=== PATIENT | male | born 1965 | race Caucasian/White ===

== ENCOUNTER 2020-08-31 11:11 | Inpatient (IN) | payer SELFPAY ==
[~2020-08-31] VITALS: Ht 182.9 cm; Wt 91.9 kg
--- NOTE | 2020-08-31 11:22 | PHYS DOC ---
Past History Past Medical History: Pancreatitis Past Surgical History: No Surgical History Adult General Chief Complaint Chief Complaint: FLU SYMPTOM HPI HPI Patient is a 55-year-old male presenting via EMS for nausea, vomit and diarrhea. Patient has history of pancreatitis in the past from unknown etiology and is otherwise healthy with no known medical issues or daily medication use. Reports he tested positive for Covid 3 days ago at local urgent care. Since then, he has been trying to provide supportive care to himself at home as he lives home alone but has had ongoing nausea, vomit and diarrhea without any other concer lety symptoms. Denies fever, chills, diaphoresis, syncope, chest pain, shortness of breath or other URI-like symptoms. Patient has not been able to tolerate any p.o. intake and ongoing symptoms concerned him prompting him to call EMS for transport to our facility Review of Systems Review of Systems Fourteen body systems of review of systems have been reviewed. See HPI for pertinent positives and negative responses, other taylor all other systems are negative, non-pertinent or non-contributory Allergies Allergies Allergies Coded Allergies Type Severity Reaction Last Updated Verified morphine Allergy Intermediate 08/31/20 Yes Physical Exam Physical Exam Constitutional: Well developed, well nourished, moderate distress heaving on hospital [facility], forcibly making grunting/moaning sounds HENT: Normocephalic, atraumatic, bilateral external ears normal, oropharynx moist, no oral exudates, nose normal. Eyes: PERRLA, EOMI, conjunctiva normal, no discharge. Neck: Normal range of motion, no tenderness, supple, no stridor. Cardiovascular: Heart rate regular, sinus rhythm, no murmurs rubs or gallops Lungs & Thorax: Bilateral breath sounds clear to auscultation Abdomen: Bowel sounds normal, soft, generalized abdominal tenderness, voluntary guarding present without rebound, no masses, no pulsatile masses. Nonsurgical abdomen, no peritoneal signs Skin: Warm, dry, no erythema, no rash. Back: No tenderness, no CVA tenderness. Extremities: No tenderness, no cyanosis, no clubbing, ROM intact, no edema. Neurologic: Alert and oriented X 3, grossly normal motor & sensory function, no focal deficits noted. Psychologic: Unable to fully assess, patient is hysterical, forcibly making heaving and moaning sounds throughout entirety of ER visit Current Patient Data Vital Signs Vital Signs Date Time Temp Pulse Resp B/P (MAP) Pulse Ox O2 Delivery O2 Flow Rate FiO2 09/01/20 08:47 18 99 Room Air 09/01/20 08:30 Room Air 09/01/20 08:05 20 Room Air 08/31/20 23:00 98.5 67 22 125/73 (90) 99 Room Air 08/31/20 20:00 Room Air 08/31/20 19:53 98.2 67 22 149/66 (93) 99 Room Air 08/31/20 16:15 Room Air 08/31/20 16:15 97.2 67 22 121/76 (91) 99 Room Air 08/31/20 13:20 Room Air 08/31/20 11:12 97.4 93 28 147/86 (106) 100 Room Air Lab Results Laboratory Tests Test 08/31/20 11:50 09/01/20 06:10 White Blood Count 11.1 x10^3/uL 10.3 x10^3/uL Red Blood Count 5.19 x10^6/uL 4.17 x10^6/uL Hemoglobin 14.9 g/dL 12.1 g/dL Hematocrit 46.1 % 36.5 % Mean Corpuscular Volume 89 fL 88 fL Mean Corpuscular Hemoglobin 29 pg 29 pg Mean Corpuscular Hemoglobin Concent 32 g/dL 33 g/dL Red Cell Distribution Width 14.5 % 14.3 % Platelet Count 300 x10^3/uL 222 x10^3/uL Neutrophils (%) (Auto) 82 % 84 % Lymphocytes (%) (Auto) 10 % 7 % Monocytes (%) (Auto) 7 % 8 % Eosinophils (%) (Auto) 1 % 0 % Basophils (%) (Auto) 1 % 0 % Neutrophils # (Auto) 9.1 x10^3uL 8.6 x10^3uL Lymphocytes # (Auto) 1.1 x10^3/uL 0.8 x10^3/uL Monocytes # (Auto) 0.8 x10^3/uL 0.8 x10^3/uL Eosinophils # (Auto) 0.1 x10^3/uL 0.0 x10^3/uL Basophils # (Auto) 0.1 x10^3/uL 0.0 x10^3/uL Sodium Level 142 mmol/L 142 mmol/L Potassium Level 4.1 mmol/L 3.7 mmol/L Chloride Level 105 mmol/L 106 mmol/L Carbon Dioxide Level 22 mmol/L 25 mmol/L Anion Gap 15 11 Blood Urea Nitrogen 18 mg/dL 21 mg/dL Creatinine 1.4 mg/dL 1.2 mg/dL Estimated GFR (Cockcroft-Gault) 53.0 63.3 BUN/Creatinine Ratio 13 18 Glucose Level 149 mg/dL 132 mg/dL Calcium Level 9.5 mg/dL 8.6 mg/dL Total Bilirubin 0.4 mg/dL 0.3 mg/dL Aspartate Amino Transf (AST/SGOT) 15 U/L 13 U/L Alanine Aminotransferase (ALT/SGPT) 29 U/L 24 U/L Alkaline Phosphatase 59 U/L 47 U/L Creatine Kinase 89 U/L Troponin I Quantitative < 0.017 ng/mL Total Protein 8.3 g/dL 6.7 g/dL Albumin 4.1 g/dL 3.4 g/dL Albumin/Globulin Ratio 1.0 1.0 Lipase 932 U/L Current Medications Medications (Trade) Dose Ordered Sig/Mariluz Route PRN Reason Start Time Stop Time Status Last Admin Dose Admin Sodium Chloride 1,000 ml @ 1,000 mls/hr Q1H IV 08/31/20 11:30 08/31/20 12:29 DC 08/31/20 12:26 Ondansetron HCl (Zofran) 4 mg 1X ONCE IVP 08/31/20 11:30 08/31/20 11:31 DC 08/31/20 11:54 Acetaminophen (Tylenol) 650 mg 1X ONCE PO 08/31/20 11:30 08/31/20 11:31 DC 08/31/20 11:30 Ondansetron HCl (Zofran Odt) 4 mg STK-MED ONCE .ROUTE 08/31/20 11:35 08/31/20 11:36 DC Ondansetron HCl (Zofran Odt) 4 mg 1X ONCE PO 08/31/20 11:45 08/31/20 11:51 DC 08/31/20 11:45 Fentanyl Citrate (Fentanyl 2ml Vial) 50 mcg 1X ONCE IVP 08/31/20 13:15 08/31/20 13:16 DC 08/31/20 13:20 Iohexol (Omnipaque 300 Mg/ml) 75 ml 1X ONCE IV 08/31/20 13:15 08/31/20 13:16 DC 08/31/20 14:11 Ondansetron HCl (Zofran) 4 mg 1X ONCE IVP 08/31/20 13:30 08/31/20 13:31 DC 09/01/20 00:26 Sodium Chloride 1,000 ml @ 1,000 mls/hr 1X ONCE IV 08/31/20 14:00 08/31/20 14:59 DC 08/31/20 14:13 Metoclopramide HCl (Reglan Vial) 10 mg 1X ONCE IVP 08/31/20 14:00 08/31/20 14:01 DC 08/31/20 14:14 EKG EKG EKG ordered and interpreted by myself at 1339 hrs. as sinus rhythm at 66 bpm unremarkable intervals, no axis deviation, no acute ischemic findings, missing lead in V2 otherwise is grossly nonconcerning EKG with no STEMI. Radiology/Procedures Radiology/Procedures PROCEDURE: PORTABLE CHEST 1V XR CHEST 1V History: Reason: NAUSEA AND VOMIT, COVID POSITIVE / Spl. Instructions: / History: Comparison: None. Findings: No consolidation or pleural effusion. Normal heart size. No pneumothorax. Postoperative changes lower cervical spine. Impression: 1. No acute cardiopulmonary process. Electronically signed by: Jose Rogers DO (08/31/2020 12:43 PM) [id number] /////////////////////////////////////// PROCEDURE: CT ABD PELV W/ IV CONTRST ONLY INDICATION: Reason: epigastric pain / Spl. Instructions: / History: . COMPARISON: None. TECHNIQUE: Axial CT images obtained through the abdomen and pelvis with contrast. One or more of the following individualized dose reduction techniques were utilized for this examination: 1. Automated exposure control; 2. Adjustment of the mA and/or kV according to patient size; 3. Use of iterative reconstruction technique. FINDINGS: Moderate calcific atherosclerosis. Small fat-containing left inguinal hernia. No intrahepatic bile duct dilation. No peripancreatic fluid collection. Spleen is unremarkable. No hydronephrosis. Urinary bladder is partially distended with wall thickening. No periappendiceal inflammatory changes. The colon is decompressed with prominent appearance of wall. Degenerative changes of the hips and spine with multilevel central canal and neural foraminal stenosis. This includes multiple disc protrusions. IMPRESSION: * Urinary bladder is partially distended with prominence of the wall. This could be caused by chronic etiology such as chronic partial bladder outlet obstruction with some other possible causes including cystitis or bladder wall lesion. * Colon is decompressed with some prominence of the wall throughout. Could be secondary to contraction but limited evaluation given this decompression. * No hydronephrosis or evidence of appendicitis. Electronically signed by: Mario Alberto Hassan MD (08/31/2020 2:40 PM) [id number] Heart Score C/O Chest Pain: No Risk Factors: Risk Factors: DM, Current or recent (<one month) smoker, HTN, HLP, family history of CAD, obesity. Risk Scores: Risk Factors: DM, Current or recent (<one month) smoker, HTN, HLP, family history of CAD, obesity. Course & Med Decision Making Course & Med Decision Making Hemodynamically stable patient with history and physical exam consistent with known COVID-19 infection IV access obtained, IV fluid resuscitation and antiemetics administered Comprehensive ER work-up performed and grossly nonconcerning Patient reevaluated numerous times throughout ER visit by various healthcare providers with continued moaning, groaning and feelings of unease. He is not safe for discharge home given that ER management did not adequately improve and/or resolve symptoms I contacted hospitalist and discussed case at length, Dr. Hercules agreed to accept patient under his care at [facility] I have updated patient on proposed plan of care and he was amenable to plan as stated, all questions and concerns addressed prior to ER transportation to [facility] for admission Dragon Disclaimer Dragon Disclaimer This electronic medical record was generated, in whole or in part, using a voice recognition dictation system. Departure Departure: Impression: Primary Impression: COVID-19 virus infection Additional Impression: Nausea, vomiting, and diarrhea Disposition: ADMITTED INPT THIS HOSP Admitting Physician: Tunde Hercules Condition: STABLE Problem Qualifiers CARIDAD FONG DO Aug 31, 2020 11:22
[2020-08-31] MEDS ORDERED: ACETAMINOPHEN 325 MG TABLET PO ONE (11:30)
[2020-08-31] MEDS ORDERED: ONDANSETRON PF 4 MG/2 ML VIAL. IVP ONE ×2 (11:30→13:30)
[2020-08-31] MEDS ORDERED: IV NORMAL SALINE 1,000ML 1,000 ML IV SCH (11:30)
[2020-08-31] MEDS ORDERED: ONDANSETRON ODT 4 MG TAB.RAPDIS ONE (11:35)
[2020-08-31] MEDS ORDERED: ONDANSETRON ODT 4 MG TAB.RAPDIS PO ONE (11:45)
[2020-08-31 12:15] LABS: BASO # 0.1 x10^3/uL (0.0-0.2); BASO % 1 % (0-3); EOS # 0.1 x10^3/uL (0.0-0.7); EOS % 1 % (0-3); HEMATOCRIT 46.1 % (39.0-53.0); HEMOGLOBIN 14.9 g/dL (13.0-17.5); LYMPH # 1.1 x10^3/uL (1.0-4.8); LYMPH % 10 % (24-48); MEAN CORPUSCULAR HEMOGLOBIN 29 pg (25-35); MEAN CORPUSCULAR HGB CONC 32 g/dL (31-37); MEAN CORPUSCULAR VOLUME 89 fL (79-100); MONO # 0.8 x10^3/uL (0.0-1.1); MONO % 7 % (0-9); NEUT # 9.1 x10^3uL (1.8-7.7); NEUT % 82 % (31-73); PLATELET COUNT 300 x10^3/uL (140-400); RED BLOOD COUNT 5.19 x10^6/uL (4.30-5.70); RED CELL DISTRIBUTION WIDTH 14.5 % (11.5-14.5); WHITE BLOOD COUNT 11.1 x10^3/uL (4.0-11.0)
[2020-08-31 12:25] LABS: CALCIUM 9.5 mg/dL (8.5-10.1); CREATININE 1.4 mg/dL (0.7-1.3); POTASSIUM 4.1 mmol/L (3.5-5.1)
[2020-08-31 12:32] LABS: ALBUMIN 4.1 g/dL (3.4-5.0); TOTAL BILIRUBIN 0.4 mg/dL (0.2-1.0); TOTAL PROTEIN 8.3 g/dL (6.4-8.2)
--- NOTE | 2020-08-31 12:45 | RAD ---
XR CHEST 1V History: Reason: NAUSEA AND VOMIT, COVID POSITIVE / Spl. Instructions: / History: Comparison: None. Findings: No consolidation or pleural effusion. Normal heart size. No pneumothorax. Postoperative changes lower cervical spine. Impression: 1. No acute cardiopulmonary process. Electronically signed by: Jose Rogers DO (08/31/2020 12:43 PM) [id number]
[2020-08-31] MEDS ORDERED: IOHEXOL 300 MG/ML 75 ML VIAL. IV ONE (13:15)
[2020-08-31] MEDS ORDERED: METOCLOPRAMIDE HCL 10 MG/2 ML VIAL. IVP ONE (14:00)
[2020-08-31] MEDS ORDERED: IV NORMAL SALINE 1,000ML 1,000 ML IV ONE (14:00)
--- NOTE | 2020-08-31 14:42 | RAD ---
INDICATION: Reason: epigastric pain / Spl. Instructions: / History: . COMPARISON: None. TECHNIQUE: Axial CT images obtained through the abdomen and pelvis with contrast. One or more of the following individualized dose reduction techniques were utilized for this examinat ion: 1. Automated exposure control; 2. Adjustment of the mA and/or kV according to patient size; 3 . Use of iterative reconstruction technique. FINDINGS: Moderate calcific atherosclerosis. Small fat-containing left inguinal hernia. No intrahepatic bile duct dilation. No peripancreatic fluid collection. Spleen is unremarkable. No hydronephrosis. Urinary bladder is partially distended with wall thickening. No periappendiceal inflammatory changes. The colon is decompressed with prominent appearance of wall. Degenerative changes of the hips and spine with multilevel central canal and neural foraminal stenosi s. This includes multiple disc protrusions. IMPRESSION: * Urinary bladder is partially distended with prominence of the wall. This could be caused by chroni c etiology such as chronic partial bladder outlet obstruction with some other possible causes includi ng cystitis or bladder wall lesion. * Colon is decompressed with some prominence of the wall throughout. Could be secondary to contracti on but limited evaluation given this decompression. * No hydronephrosis or evidence of appendicitis. Electronically signed by: Mario Alberto Hassan MD (08/31/2020 2:40 PM) [id number]
--- NOTE | 2020-08-31 14:59 | EKG ---
[facility] ED [facility] [address] [place] [id number] Test Date: 2020-08-31 Test Time: 13:34:49 Pat Name: BRAIN DORANTES Department: Room: Gender: M [employer] Supervisor: : 1965 Requested By: CARIDAD FONG Order Number: [id number] Reading MD: Measurements Intervals [place] Rate: 75 P: 56 IA: 148 QRS: 19 QRSD: 94 T: 34 QT: 414 QTc: 465 Interpretive Statements SINUS RHYTHM VENTRICULAR PREMATURE COMPLEX(ES) ATRIAL PREMATURE COMPLEX(ES) T ABNORMALITY IN ANTEROSEPTAL LEADS ABNORMAL ECG RI6.02 Compared to ECG 08/31/2020 13:31:26 T-wave abnormality now present
[2020-08-31 16:15] VITALS: BP 121/76
--- NOTE | 2020-08-31 16:48 | NUR ---
NSG NOTE; ADMISSION ADMIT TO ROOM 103 AT 1600 FROM ED VIA CART ACCOMP BY EMS PERSONNEL C/O N/V/D X2 DAYS WITH POSITIVE COVID TEST ON 08/28/20
[2020-08-31] MEDS: IV RINGERS SOLUTION,LACTATED 1,000 ML IV SCH (16:55)
[2020-08-31] MEDS: PROCHLORPERAZINE 10 MG/2 ML VIAL. IVP PRN ×2 (16:56→22:26)
[2020-08-31] MEDS: KETOROLAC 30 MG/ML VIAL. IVP PRN (16:56)
--- NOTE | 2020-08-31 17:22 | NUR ---
NSG NOTE; COMPAZINE & TORADOL GIVEN C/O CONT VOMITING, CHILLS AND BODY ACHES. PT CRYING. DR BERGERON CALLED AND NEW MED ORDERS RECEIVED. COMPAZINE AND TORADOL GIVEN IV. ADDITIONAL BLANKETS APPLIED. WATER AND MOUTHWASH GIVEN FOR AFTER VOMITING. SMALL AMT OF DIARRHEA IN TOILET WITH BRIGHT RED BLOOD NOTED IN TOILET. PT STATES HE HAS A HEMORRHOID THAT OCC BLEEDS. DR BERGERON NOTIFIED AND ORDERS LABS FOR THE AM AND TO CONT TO MONITOR
[2020-08-31] MEDS: ONDANSETRON PF 4 MG/2 ML VIAL. IVP PRN (18:43)
[2020-08-31 19:53] VITALS: BP 149/66
--- NOTE | 2020-08-31 20:00 | NUR ---
Pt crying and c/o 02/22 "nauseous pain." He denies having vomited in the last hour. Will continue to monitor.
[2020-08-31 23:00] VITALS: BP 125/73
[2020-09-01] MEDS: KETOROLAC 30 MG/ML VIAL. IVP PRN (01:33)
[2020-09-01] MEDS: PROCHLORPERAZINE 10 MG/2 ML VIAL. IVP PRN ×3 (04:02→14:12)
[2020-09-01] MEDS: ONDANSETRON PF 4 MG/2 ML VIAL. IVP PRN ×2 (06:25→19:43)
[2020-09-01] MEDS: IV RINGERS SOLUTION,LACTATED 1,000 ML IV SCH (06:25)
[2020-09-01 06:29] LABS: BASO % 0 % (0-3); EOS % 0 % (0-3); HEMATOCRIT 36.5 % (39.0-53.0); HEMOGLOBIN 12.1 g/dL (13.0-17.5); LYMPH # 0.8 x10^3/uL (1.0-4.8); LYMPH % 7 % (24-48); MEAN CORPUSCULAR HEMOGLOBIN 29 pg (25-35); MEAN CORPUSCULAR HGB CONC 33 g/dL (31-37); MEAN CORPUSCULAR VOLUME 88 fL (79-100); MONO # 0.8 x10^3/uL (0.0-1.1); MONO % 8 % (0-9); NEUT # 8.6 x10^3uL (1.8-7.7); NEUT % 84 % (31-73); PLATELET COUNT 222 x10^3/uL (140-400); RED BLOOD COUNT 4.17 x10^6/uL (4.30-5.70); RED CELL DISTRIBUTION WIDTH 14.3 % (11.5-14.5); WHITE BLOOD COUNT 10.3 x10^3/uL (4.0-11.0)
[2020-09-01 06:48] LABS: ALBUMIN 3.4 g/dL (3.4-5.0); CALCIUM 8.6 mg/dL (8.5-10.1); CREATININE 1.2 mg/dL (0.7-1.3); GFR 63.3; POTASSIUM 3.7 mmol/L (3.5-5.1); TOTAL BILIRUBIN 0.3 mg/dL (0.2-1.0); TOTAL PROTEIN 6.7 g/dL (6.4-8.2)
--- NOTE | 2020-09-01 08:31 | HP ---
ADMIT DATE: 08/31/2020 ATTENDING PHYSICIAN: Dr. Bergeron. CHIEF COMPLAINT: Nausea, vomiting and abdominal pain. HISTORY OF PRESENT ILLNESS: Patient is a 55-year-old gentleman, recently moved here from [place], [place]. He has no local physician. He is otherwise healthy. He states he was diagnosed recently with coronavirus infection where he got the swab, remains to be seen. He has had GI symptoms without any pulmonary symptoms. He has had nausea, vomiting, diarrhea and significant abdominal pain, which by far is more than what I can find on physical exam. He was treated accordingly, admitted with symptomatic treatment. I reviewed his CT of the abdomen. There is no evidence of any obstruction, gallbladder disease, pancreatitis or obstruction. He has most likely a self-limiting gastroenteritis. This may be a different virus than the coronavirus, although coronavirus has been shown to cause some GI symptoms. He has no pulmonary symptoms. Chest x-ray was clear. ALLERGIES: HE HAS ALLERGIES TO MORPHINE, exact reaction is unclear. PAST MEDICAL HISTORY: Unremarkable for any diabetes, hypertension. He has had some chronic hemorrhoids. He is not on any prescription meds. FAMILY HISTORY: Parents are both alive in their early 80s. They live in [place], [place]. He is single, without any family. REVIEW OF SYSTEMS: Significant for the hemorrhoids. He has had the GI symptoms. There is no recent travel. All other systems were reviewed and turned to be negative. PHYSICAL EXAMINATION: GENERAL: When I saw him, this is a pleasant gentleman, but appears in much discomfort based on his findings. INITIAL VITAL SIGNS: Showed a blood pressure is 125/73 mmHg, pulse 67 and regular, temperature 98.5 degrees Fahrenheit, oxygen saturation 99% on room air. HEENT: Head is without trauma. Pupils are reactive. Sclerae nonicteric. Oropharynx is clear. NECK: Supple, no bruits identified. LUNGS: Otherwise clear. CARDIOVASCULAR: Showed regular heart tones. No gallops. ABDOMEN: Diffuse tenderness, no guarding or rebound tenderness. Bowel sounds were hypoactive. EXTREMITIES: Show no cyanosis or edema. NEUROLOGIC: Focally intact. Affect is quite flat. SKIN: Warm and dry. PERTINENT LABORATORY STUDIES: His hemoglobin on admission was 14.9 g/dL with white cell count 11,000. Electrolytes, BUN and creatinine within normal range. Creatinine is 1.4 mg/dL. Cardiac enzymes negative. Transaminases were all normal. IMAGING STUDIES: As noted. CT showed no obstruction, pancreatitis or gallbladder disease. No surgical issues at this time. ASSESSMENT: 1. A 55-year-old gentleman with a self-limiting gastroenteritis. Whether this is a GI virus or coronavirus remains to be seen. 2. I believe his condition is self-limiting. 3. Significant psychomotor retardation and probable underlying depression with anxiety. He is not tolerating the symptoms well. 4. Mild dehydration. PLAN: 1. Admit to the inpatient unit. 2. N.p.o. 3. Pain and nausea control. 4. Serial lab work. 5. Advance diet as tolerated. TR BERGERON MD DR: LEONIDES/nts JOB#: [id number] / [id number]
[2020-09-01 10:29] VITALS: BP 114/59
[2020-09-01 14:56] VITALS: BP 106/47
[2020-09-01 20:47] VITALS: BP 104/63
[2020-09-01 23:00] VITALS: BP 120/73
[2020-09-02] MEDS: PROCHLORPERAZINE 10 MG/2 ML VIAL. IVP PRN ×3 (00:43→14:52)
[2020-09-02] MEDS: KETOROLAC 30 MG/ML VIAL. IVP PRN (02:21)
[2020-09-02] MEDS: ONDANSETRON PF 4 MG/2 ML VIAL. IVP PRN ×2 (03:21→11:18)
[2020-09-02 05:54] VITALS: BP 150/77
[2020-09-02] MEDS: IV RINGERS SOLUTION,LACTATED 1,000 ML IV SCH ×2 (08:04→08:05)
--- NOTE | 2020-09-02 10:13 | PN ---
DATE: 09/02/2020 ATTENDING PHYSICIAN: Dr. Tr Bergeron SUBJECTIVE: Still nauseated, very flat affect, lies in bed with the covers over his head. He is tolerating some liquids. He has emesis basin, but I do not see any emesis. OBJECTIVE FINDINGS: VITAL SIGNS: Blood pressure this morning is 150/77, pulse is 56 and regular, temperature 98.2 degrees Fahrenheit, oxygen saturation 97% on room air. HEENT: Head is without trauma. Pupils are reactive. Sclerae nonicteric. Oropharynx clear. NECK: Supple. No stridor. LUNGS: Clear. CARDIOVASCULAR: Showed regular heart tones. No gallops. ABDOMEN: Soft, scaphoid. No guarding or rebound tenderness. Hypoactive bowel sounds. EXTREMITIES: Without edema. NEUROLOGIC: Focally intact. Speech is fluent. Very flat affect. ASSESSMENT: 1. A 55-year-old gentleman with self-limiting gastroenteritis, still symptomatic. 2. I believe this condition was self-limiting. 3. Recent exposure to coronavirus. 4. Significant psychomotor retardation with underlying depression with anxiety. He is not dealing with the situation well. 5. Mild dehydration, rehydrated. PLAN: 1. We have tried clear liquid diet. 2. IV hydration. 3. Pain and nausea control. 4. Serial lab work. 5. Advance diet as tolerated. TR BERGERON MD DR: LEONIDES/angela JOB#: [id number] / [id number]
[2020-09-02 10:55] VITALS: BP 161/69
[2020-09-02 15:14] VITALS: BP 120/73
[2020-09-02 19:00] VITALS: BP 163/96
[2020-09-02] MEDS ORDERED: oxyCODONE/APAP 10/325 1 TAB TABLET PO PRN (21:30)
[2020-09-03] MEDS: ONDANSETRON ODT 4 MG TAB.RAPDIS PO PRN ×2 (02:02→05:57)
[2020-09-03 05:38] VITALS: BP 165/85
[2020-09-03 11:06] VITALS: BP 128/77
--- NOTE | 2020-09-03 11:43 | NUR ---
DISCHARGE NOTE Pt discharged by Dr. Hercules today. Pt given discharge paperwork and written prescriptions from Dr. Hercules. Pt verbalized understanding of discharge paperwork and prescriptions. All questions addressed. Pt escorted out of hospital via ambulation and taken directly home via [facility] service. Steady gait, GCS 15 and AOx4 upon discharge. CC, RN
--- NOTE | 2020-09-03 11:46 | DS ---
DATE OF DISCHARGE: 09/03/2020 ATTENDING PHYSICIAN: Dr. Bergeron. FINAL DISCHARGE DIAGNOSES: 1. Nausea, vomiting and diarrhea. 2. Self-limiting gastroenteritis. 3. Mild dehydration, resolved. 4. Abdominal pain, resolved. 5. Recent exposure to coronavirus, which may be incidental. 6. Significant psychomotor retardation related to illness. 7. Mild dehydration, rehydrated. HISTORY AND PHYSICAL: This is a 55-year-old gentleman admitted through the ED with nausea, vomiting, diarrhea and abdominal pain. PHYSICAL EXAMINATION: Please see the dictated note. PERTINENT LABORATORY AND X-RAY STUDIES: Supposedly, he had a positive coronavirus swab in the ED, hemoglobin was 14.9 g/dL, white cell count 11,000, repeated next day was 10,300. Chemistry panel unremarkable. Creatinine is 1.2 mg/dL, nonfasting blood sugar 132. Transaminases normal. Cardiac enzymes were normal. IMAGING STUDIES: Chest x-ray was entirely clear without any acute cardiopulmonary process. CT of the abdomen and pelvis showed no evidence of hydronephrosis, appendicitis. Some prominence of the colon wall, otherwise unremarkable. COURSE IN THE HOSPITAL: The patient was admitted to the medical service, started on IV hydration with pain and nausea control. His prognosis was slow, but steady. By the fourth hospital day, he was feeling much better. His vital signs are quite stable. He remained afebrile. Subsequent lab work unremarkable. Therefore on the fourth hospital day, the patient was discharged home with reassurance that this condition is self-limiting. I wrote a script for hydrocodone 10/325, acetaminophen one every 6 hours p.r.n. pain. No restrictions on diet. I believe that positive coronavirus is incidental finding. He will follow up with local primary care physician, I gave him some number. He was discharged in stable condition with explicit instructions and followup care. TR BERGERON MD DR: LEONIDES/angela JOB#: [id number] / [id number]
== END 2020-09-03 11:40 | disposition home or self-care (01) | DRG 391 ==
LOC: ER 11:11 → 1 SOUTH 14:51
PROVIDERS: ADMIT Hospitalist; ATTEND Hospitalist
DX: K52.9 Noninfective gastroenteritis and colitis, unspecified (principal); U07.1 COVID-19; K64.9 Unspecified hemorrhoids; R41.843 Psychomotor deficit; E86.0 Dehydration; N32.89 Other specified disorders of bladder; F41.8 Other specified anxiety disorders; Z88.5 Allergy status to narcotic agent; Z91.09 Other allergy status, other than to drugs and biological substances
CPT/HCPCS: 36415; 71045; 74177; 80053; 82550; 83690; 84484; 85025; 93005; 96361; 96374; 96375; 99285; G0379; J0780; J1885; J2405; J2765; J3010; J7120; Q0162; Q9967; J7030

== ENCOUNTER 2020-11-21 09:25 | Emergency (ER) | payer OTHER ==
[~2020-11-21] VITALS: Ht 182.9 cm; Wt 81.8 kg
[2020-11-21] MEDS ORDERED: GABA100C81 PO (09:52)
--- NOTE | 2020-11-21 10:34 | PHYS DOC ---
Past History Past Medical History: Pancreatitis Additional Past Medical Histor: covid, back pain, neuropathy Past Surgical History: Cervical Fusion Alcohol Use: None General Adult EDM: Chief Complaint: LACERATION/AVULSION HPI: HPI: Patient is a 55-year-old male with laceration to his left thumb. Patient was working and cut himself with utility knife. Last tetanus 2 to 3 years ago. No other complaints. Review of Systems: Review of Systems: All other systems within normal limits except for as noted in the HPI Allergies: Allergies: Allergies Coded Allergies Type Severity Reaction Last Updated Verified morphine Allergy Intermediate 08/31/20 Yes Physical Exam: PE: Constitutional: Well developed, well nourished, no acute distress, non-toxic appearance. [] HENT: Normocephalic, atraumatic, bilateral external ears normal, nose normal. [] Eyes: PERRLA, conjunctiva normal, no discharge. [] Neck: No rigidity, supple, no stridor. [] Cardiovascular: Regular rate and rhythm, brisk cap refill [] Lungs & Thorax: Non labored symmetric respirations, no tachypnea or respiratory distress [] Abdomen: Soft, nondistended. Skin: Warm, dry, no erythema, no rash. 3 cm V-shaped laceration to left thumb distal fat pad. Superficial approximately 2 to 3 mm deep [] Back: Unremarkable Extremities: No deformities, range of motion grossly intact, no lower extremity edema [] Neurologic: Alert and oriented X 3, no focal deficits noted. [] Psychologic: Affect normal, judgement normal, mood normal. [] Current Patient Data: Vital Signs: Vital Signs Date Time Temp Pulse Resp B/P (MAP) Pulse Ox O2 Delivery O2 Flow Rate FiO2 11/21/20 09:52 98.1 82 20 124/70 (88) 97 Room Air EKG: EKG: [] Radiology/Procedures: Radiology/Procedures: Laceration pair: Wound cleaned and irrigated with saline and chlorhexidine. No foreign bodies found. Wound approximated with Dermabond and covered with Steri- Strips. No complications [] Heart Score: C/O Chest Pain: No Risk Factors: Risk Factors: DM, Current or recent (<one month) smoker, HTN, HLP, family history of CAD, obesity. Risk Scores: Score 0 - 3: 2.5% MACE over next 6 weeks - Discharge Home Score 4 - 6: 20.3% MACE over next 6 weeks - Admit for Clinical Observation Score 7 - 10: 72.7% MACE over next 6 weeks - Early Invasive Strategies Course & Med Decision Making: Course & Med Decision Making Pertinent Labs and Imaging studies reviewed. (See chart for details) [] Dragon Disclaimer: Dragon Disclaimer: This electronic medical record was generated, in whole or in part, using a voice recognition dictation system. Departure Departure: Impression: Primary Impression: Laceration of thumb, left Disposition: HOME / SELF CARE / HOMELESS Condition: STABLE Referrals: PCP,NO (PCP) Patient Instructions: Tissue Adhesive Wound Care MAURICIO HOFFMAN MD Nov 21, 2020 10:34
[2020-11-21 10:50] VITALS: BP 117/76
== END 2020-11-21 10:52 | disposition home or self-care (01) ==
LOC: ER 09:25
DX: S61.012A Laceration without foreign body of left thumb without damage to nail, initial encounter (principal); Z88.5 Allergy status to narcotic agent; W26.0XXA Contact with knife, initial encounter; Y93.89 Activity, other specified; Y92.89 Other specified places as the place of occurrence of the external cause; Y99.8 Other external cause status
CPT/HCPCS: 12002; 99282